=== PATIENT | female | born 1990 | race Caucasian/White ===

== ENCOUNTER 2017-02-11 22:07 | Emergency (ER) | payer OTHER ==
[~2017-02-11] VITALS: Ht 154.9 cm; Wt 105.7 kg
[~2017-02-11 22:07] MED LIST: VICODIN-ES1 TAB PO; [UNRECOGNIZED DRUG - REMARK]
[2017-02-11 22:10] VITALS: BP 126/74
--- NOTE | 2017-02-11 22:57 | NUR ---
TO ER BED 6
--- NOTE | 2017-02-11 23:50 | NUR ---
PATIENT PRESENTS TO ED WITH ABD PAIN . PT NAUSEA; SKIN IS PINK/WARM/DRY; AAOX4 WITH EVEN AND STEADY GAIT; LUNGS CLEAR BL; HR EVEN AND REGULAR; PT DENIES ANY FEVER, CP, SOB, OR COUGH AT THIS TIME; PATIENT STATES PAIN OF 7/10 AT THIS TIME; VSS; PATIENT POSITIONED FOR COMFORT; HOB ELEVATED; BEDRAILS UP X2; BED DOWN. ER MD MADE AWARE OF PT STATUS.
--- NOTE | 2017-02-12 00:55 | NUR ---
Patient discharged with v/s stable. Written and verbal after care instructions given and explained. Patient alert, oriented and verbalized understanding of instructions. Ambulatory with steady gait. All questions addressed prior to discharge. ID band removed. Patient advised to follow up with PMD. Rx of ZOFRAN AND MIRALAX given. Patient educated on indication of medication including possible reaction and side effects. Opportunity to ask questions provided and answered.
[2017-02-12 00:56] VITALS: BP 124/72
== END 2017-02-12 00:57 | disposition home or self-care (01) ==
LOC: MED 22:07
DX: R10.84 Generalized abdominal pain (principal); R51 Headache; J45.909 Unspecified asthma, uncomplicated

== ENCOUNTER 2018-11-21 00:50 | Emergency (ER) | payer OTHER ==
[~2018-11-21] VITALS: Ht 154.9 cm; Wt 113.9 kg
[2018-11-21 01:10] VITALS: BP 109/65
[2018-11-21] MEDS ORDERED: PRON INH (01:13)
--- NOTE | 2018-11-21 01:36 | NUR ---
PT BIB SELF C/O LOWER ABD PAIN FOR 4 DAYS W/ N/V/D. ABD IS ROUND, SOFT, NON TENDER, ACTIVE BS X4. NO ACTIVE VOMITING NOTED SINCE ARRIVAL IN ER. PT IS LAYING IN BED, AT BEDSIDE.
--- NOTE | 2018-11-21 01:44 | NUR ---
MOVED TO ER BED 4
[2018-11-21] MEDS ORDERED: ONDANSETRON 4 MG ODT PO ONE (01:50)
[2018-11-21] MEDS ORDERED: DICYCLOMINE 20 MG/2 ML VIAL IM ONE (01:50)
[2018-11-21] MEDS ORDERED: KETOROLAC 30 MG/ML VIAL IM ONE (01:50)
[2018-11-21 02:27] LABS: BASOPHILS # (AUTO) 0.1 K/uL (0.00-0.22); BASOPHILS % (AUTO) 0.9 % (0.0-2.0); EOSINOPHILS # (AUTO) 0.3 K/uL (0-0.4); EOSINOPHILS % (AUTO) 3.5 % (0.0-4.0); HEMATOCRIT 41.8 % (36-48); HEMOGLOBIN 13.5 g/dL (12.0-16.0); LYMPHOCYTES # (AUTO) 3.1 K/uL (2.5-16.5); LYMPHOCYTES % (AUTO) 31.2 % (20.5-51.1); MEAN CORPUSCULAR HEMOGLOBIN 29 pg (27-31); MEAN CORPUSCULAR HGB CONC 32 g/dL (33-37); MEAN CORPUSCULAR VOLUME 88.6 fL (80-94); MONOCYTES # (AUTO) 0.8 K/uL (0.8-1.0); MONOCYTES % (AUTO) 8.4 % (1.7-9.3); NEUTROPHILS # (AUTO) 5.5 K/uL (1.8-7.7); PLATELET COUNT (AUTO) 303 K/uL (140-450); RED BLOOD CELL COUNT(AUTO) 4.72 MIL/uL (4.20-5.40); RED CELL DISTRIBUTION WIDTH 13.3 % (11.6-13.7); WHITE BLOOD COUNT (AUTO) 9.8 K/uL (4.8-10.8)
[2018-11-21 02:48] LABS: ANION GAP 13.4 (8-16); CARBON DIOXIDE 26.1 mmol/L (21-32); CREATININE 0.7 mg/dL (0.6-1.3); POTASSIUM 3.5 mmol/L (3.5-5.1)
[2018-11-21 02:59] LABS: ALBUMIN 3.5 g/dL (3.4-5.0); TOTAL BILIRUBIN 0.3 mg/dL (0.0-1.0)
[2018-11-21 03:27] VITALS: BP 130/79
--- NOTE | 2018-11-21 03:27 | NUR ---
Patient discharged with v/s stable. Written and verbal after care instructions given and explained. Patient alert, oriented and verbalized understanding of instructions. Ambulatory with steady gait. All questions addressed prior to discharge. ID band removed. Patient advised to follow up with PMD. Rx of CITLALI HOLMAN ODT given. Patient educated on indication of medication including possible reaction and side effects. Opportunity to ask questions provided and answered.
== END 2018-11-21 03:27 | disposition home or self-care (01) ==
LOC: MED 00:50
DX: R10.30 Lower abdominal pain, unspecified (principal); R11.10 Vomiting, unspecified; R19.7 Diarrhea, unspecified; J00 Acute nasopharyngitis [common cold]; J45.909 Unspecified asthma, uncomplicated; E07.9 Disorder of thyroid, unspecified; Z79.899 Other long term (current) drug therapy
CPT/HCPCS: 36415; 80053; 81002; 81025; 83690; 85025; 96372; 99283; J0500; J1885; Q0162

== ENCOUNTER 2019-06-10 08:59 | Emergency (ER) | payer OTHER ==
[~2019-06-10] VITALS: Ht 154.9 cm; Wt 108.0 kg
[~2019-06-10 08:59] MED LIST changes: +PRON INH; -VICODIN-ES1 TAB PO; -[UNRECOGNIZED DRUG - REMARK]
[2019-06-10 09:01] VITALS: BP 122/73
--- NOTE | 2019-06-10 09:08 | NUR ---
PT AMBULATED TO ER BED 02
--- NOTE | 2019-06-10 09:18 | NUR ---
28F C/O RIGHT EAR PAIN X 3 DAYS. TRIED "EARACHE DROPS" YESTERDAY WITH NO RELIEF. DENIES FEVER, CHILLS, DIZZINESS, DISORIENTATION, N/V. PURULENT DISCHARGE NOTED IN RIGHT EAR CANAL. AOX4. BEDRAILS UP X1, ERMD TO EVAL PATIENT. Addendum: 06/10/19 at 0922 by DENY RIGHT EAR PAIN RATED 7/10 HX ASTHMA
[2019-06-10 09:40] VITALS: BP 122/73
--- NOTE | 2019-06-10 09:40 | NUR ---
Patient discharged with v/s stable. Written and verbal after care instructions given and explained. Patient alert, oriented and verbalized understanding of instructions. Ambulatory with steady gait. All questions addressed prior to discharge. ID band removed. Patient advised to follow up with PMD. Rx of CORISPORIN OTIC AND LIDOCAINE SOLUTION given. Patient educated on indication of medication including possible reaction and side effects. Opportunity to ask questions provided and answered.
== END 2019-06-10 09:40 | disposition home or self-care (01) ==
LOC: MED 08:59
DX: H60.91 Unspecified otitis externa, right ear (principal); F17.200 Nicotine dependence, unspecified, uncomplicated; J45.909 Unspecified asthma, uncomplicated; E07.9 Disorder of thyroid, unspecified; Z79.899 Other long term (current) drug therapy; Z71.6 Tobacco abuse counseling
CPT/HCPCS: 99283

== ENCOUNTER 2019-12-06 06:12 | Emergency (ER) | payer OTHER ==
[~2019-12-06] VITALS: Ht 154.9 cm; Wt 101.2 kg
[2019-12-06 06:15] VITALS: BP 119/70
--- NOTE | 2019-12-06 06:15 | NUR ---
to bed # 04 ambulatory
--- NOTE | 2019-12-06 06:20 | NUR ---
Dr. Farris examining patient.
--- NOTE | 2019-12-06 06:24 | NUR ---
29 Y/O FEMALE PRESENTS TO ED, C/O COUGHING AND CONGESTION X3 DAYS. PT STATES COUGH IS NON PRODUCTIVE. PT DENIES ANY CHEST PAIN. NO SOB/DIFFICULTY BREATHING NOTED. PT C/O FEVER; AFEBRILE DURING ASSESSMENT. TOOK 2 TYLENOLS LAST NIGHT. PT VSS. ERMD AWARE. WILL CONTINUE TO MONITOR.
[2019-12-06 06:29] VITALS: BP 119/70
--- NOTE | 2019-12-06 06:29 | NUR ---
PT DISCHARGED BY DR CERVANTES WITH PAPERWORK. EDUCATED PT REGARDING MEDICATION AND D/C INSTRUCTIONS. PT VERBALIZED UNDERSTANDING OF TEACHING. TOLD PT TO FOLLOW UP WITH PCP AND WHEN TO RETURN TO ED. PT AT STABLE CONDITION. ALL QUESTIONS ANSWERED.
== END 2019-12-06 06:29 | disposition home or self-care (01) ==
LOC: MED 06:12
DX: O99.511 Diseases of the respiratory system complicating pregnancy, first trimester (principal); J45.909 Unspecified asthma, uncomplicated; E07.9 Disorder of thyroid, unspecified; Z79.899 Other long term (current) drug therapy
CPT/HCPCS: 99283